=== PATIENT | female | born 1950 | race Caucasian/White ===

== ENCOUNTER 2017-04-30 10:48 | Emergency (ER) | payer BC ==
[2017-04-30 13:20] VITALS: BP 154/98
--- NOTE | 2017-04-30 13:32 | UC ---
Skin Complaint HPI - HPI Summary HPI Summary: multiple insect bites to back and thighs concerned that one maybe a tick bite - History of Current Complaint Chief Complaint: UCSkin Time Seen by Provider: 04/30/17 13:40 Stated Complaint: TICK BITE Hx Obtained From: Patient ?: No Onset/Duration: Sudden Onset, Lasting Days, Still Present Timing: Constant Onset Severity: Mild Current Severity: Mild Location: Diffuse Character: Redness Aggravating: Nothing Alleviating: Nothing Associated Signs & Symptoms: Positive: Negative Related History: Insect Bite/Sting - Allergy/Home Medications Allergies/Adverse Reactions: Allergies Allergy/AdvReac Type Severity Reaction Status Date / Time No Known Allergies Allergy Verified 04/04/16 14:19 Home Medications: Home Medications Aspirin 81 mg PO 04/30/17 [History] Review of Systems Constitutional: Negative Skin: Other - multiple inscect bites Eyes: Negative ENT: Negative Respiratory: Negative Cardiovascular: Negative Gastrointestinal: Negative Genitourinary: Negative Motor: Negative Neurovascular: Negative Musculoskeletal: Negative Neurological: Negative Psychological: Negative All Other Systems Reviewed And Are Negative: Yes PMH/Surg Hx/FS Hx/Imm Hx Previously Healthy: Yes - Surgical History Surgical History: Yes Surgery Procedure, Year, and Place: Laminectomy 1992,. tonsillectomy as a child ,. Laproscopic surgery - Family History Known Family History: Positive: None, Cardiac Disease - father in 80s, Other - brother D esophageal cancer - Social History Occupation: Employed Full-time Lives: With Family Alcohol Use: Rare Substance Use Type: None Smoking Status (MU): Never Smoked Tobacco Have You Smoked in the Last Year: No Physical Exam Triage Information Reviewed: Yes Appearance: Well-Appearing, No Pain Distress, Well-Nourished Vital Signs: Initial Vital Signs Temp 98.3 F 04/30/17 13:16 Pulse 86 04/30/17 13:16 Resp 18 04/30/17 13:16 BP 154/98 04/30/17 13:16 Pulse Ox 99 04/30/17 13:16 Vital Signs Reviewed: Yes Eye Exam: Normal Eyes: Positive: Conjunctiva Clear ENT Exam: Normal ENT: Positive: Normal ENT inspection, Hearing grossly normal. Negative: Nasal congestion, Nasal drainage, Trismus, Muffled/hoarse voice Dental Exam: Normal Neck exam: Normal Neck: Positive: Supple, Nontender Respiratory Exam: Normal Respiratory: Positive: Chest non-tender, Lungs clear, Normal breath sounds, No respiratory distress, No accessory muscle use Cardiovascular Exam: Normal Cardiovascular: Positive: RRR, No Murmur, Pulses Normal, Brisk Capillary Refill Musculoskeletal Exam: Normal Musculoskeletal: Positive: Strength Intact, ROM Intact, No Edema Neurological Exam: Normal Neurological: Positive: Alert, Muscle Tone Normal Psychological Exam: Normal Skin: Positive: Other - multiple insect bites no evidence of a tick or erythema migranes Course/Dx - Course Course Of Treatment: gebtle soap and water wash, topical Hydrocort prn itch, observe for s/s of Lyme and lyme prevention information follow with pcp - Differential Diagnoses - Skin Complaint Differential Diagnoses: Cellulitis, Poison Jessica, Poison Otis, Systemic Illness, Tick Born Illness, Other - inscet bite - Diagnoses Provider Diagnoses: Local reactions to Insect Bite Discharge - Discharge Plan Condition: Stable Disposition: HOME Patient Education Materials: Insect Bite or Sting (ED), Tick Bite (ED), DASH Eating Plan (ED), Hypertension (ED) Referrals: Nestor Salazar MD [Primary Care Provider] - 2 Weeks
== END 2017-04-30 13:59 | disposition home or self-care (01) ==
LOC: UCEAST 10:48
DX: T14.8 Other injury of unspecified body region (principal); Z79.82 Long term (current) use of aspirin; W57.XXXA Bitten or stung by nonvenomous insect and other nonvenomous arthropods, initial encounter; Y92.9 Unspecified place or not applicable
CPT/HCPCS: 99211; G0463

== ENCOUNTER 2017-10-22 10:23 | Emergency (ER) | payer BC ==
[2017-10-22 12:25] VITALS: BP 146/90
--- NOTE | 2017-10-22 12:46 | UC ---
Rectal Pain HPI - HPI Summary HPI Summary: 67yo WF c/o 2 week old tick bite in right inner thigh, now scabbed over, but c/ o CP with cough with mild sputum, also c/o mild urinary frequency and urgency and a tinge of right lower abd pain intermittently x 1 week. - History Of Current Complaint Chief Complaint: UCGeneralIllness Stated Complaint: TICK BITE Time Seen by Provider: 10/22/17 12:11 Hx Last Menstrual Period: post menopause - Allergies/Home Medications Allergies/Adverse Reactions: Allergies Allergy/AdvReac Type Severity Reaction Status Date / Time No Known Allergies Allergy Verified 10/22/17 12:25 PMH/Surg Hx/FS Hx/Imm Hx - Surgical History Surgical History: Yes Surgery Procedure, Year, and Place: Laminectomy 1992,. tonsillectomy as a child ,. Laproscopic surgery. lympoma removed - Family History Known Family History: Positive: None, Cardiac Disease - father in 80s, Other - brother D esophageal cancer - Social History Alcohol Use: Rare Substance Use Type: None Smoking Status (MU): Never Smoked Tobacco Have You Smoked in the Last Year: No - Immunization History Most Recent Influenza Vaccination: delclines Review of Systems Constitutional: Negative Skin: Negative Eyes: Negative ENT: Negative Respiratory: Cough, Other - CP with cough Cardiovascular: Negative Genitourinary: Frequency, Urgency Motor: Negative Neurovascular: Negative Musculoskeletal: Negative Neurological: Negative Psychological: Negative Physical Exam Triage Information Reviewed: Yes Appearance: No Pain Distress Vital Signs: Initial Vital Signs Temp 37.0 C 10/22/17 12:17 Pulse 106 10/22/17 12:17 Resp 20 10/22/17 12:17 BP 146/90 10/22/17 12:17 Pulse Ox 98 10/22/17 12:17 Eye Exam: Normal ENT Exam: Normal ENT: Positive: Normal ENT inspection, Nasal congestion, TMs normal. Negative: Nasal drainage Dental Exam: Normal Neck exam: Normal Neck: Positive: Supple, No Lymphadenopathy Respiratory Exam: Normal Respiratory: Positive: Lungs clear, Other: - coarse BS B/L Cardiovascular Exam: Normal Cardiovascular: Positive: RRR Abdominal Exam: Normal Abdomen Description: Positive: Nontender Musculoskeletal Exam: Normal Neurological Exam: Normal Psychological Exam: Normal Skin Exam: Normal Skin: Positive: significant lesion(s) - Small scabbed over [id number] skin lesion on right mid inner thigh Rectal Pain Course/Dx - Differential Dx/Diagnosis Provider Diagnoses: bronchitis, viral illness, Tick bite Discharge - Discharge Plan Condition: Stable Disposition: HOME Discharge Disposition Comment: F/u wiht PCP for Lyme titer studies next week after acute viral illness Patient Education Materials: Acute Bronchitis (ED), Viral Syndrome (ED) Referrals: Nestor Salazar MD [Primary Care Provider] - Additional Instructions: As tolerated. Drink plenty of hydration for viral chest cold sx and follow up with your primary doctor for Lyme studies next week after your acute viral symptoms resolve
--- NOTE | 2017-10-22 13:23 | UC ---
Skin Complaint HPI - HPI Summary HPI Summary: 67yo Wf c/o right inner thigh tick bite 2 weeks ago, now also p/w c/o cough with mild sputum withe pleuritic CP x 1 week after having contact with sick grandkids, but now somewhat getting better. Also c/o intermittent urinary frequency and urgency once or twice but feels ok now. Kevin f/c. - History of Current Complaint Chief Complaint: UCGeneralIllness Time Seen by Provider: 10/22/17 12:11 Stated Complaint: TICK BITE Hx Obtained From: Patient Hx Last Menstrual Period: post menopause Onset/Duration: Sudden Onset Pain Intensity: 5 Pain Scale Used: 0-10 Numeric Location: Other - right inner thigh Aggravating Factor(s): Nothing Alleviating Factor(s): Nothing Associated Signs & Symptoms: Positive: Weakness, Cough, Chest Pain. Negative: Fever, Chills, Wheezing, Drainage - Allergy/Home Medications Allergies/Adverse Reactions: Allergies Allergy/AdvReac Type Severity Reaction Status Date / Time No Known Allergies Allergy Verified 10/22/17 12:25 Review of Systems Constitutional: Negative Skin: Other - Tick bite Eyes: Negative ENT: Negative Respiratory: Cough, Other - SEE HPI Cardiovascular: Negative Gastrointestinal: Negative Genitourinary: Frequency, Urgency Motor: Negative Neurovascular: Negative Musculoskeletal: Negative Neurological: Negative Psychological: Negative All Other Systems Reviewed And Are Negative: Yes PMH/Surg Hx/FS Hx/Imm Hx - Surgical History Surgical History: Yes Surgery Procedure, Year, and Place: Laminectomy 1992,. tonsillectomy as a child ,. Laproscopic surgery. lympoma removed - Family History Known Family History: Positive: None, Cardiac Disease - father in 80s, Other - brother D esophageal cancer - Social History Alcohol Use: Rare Substance Use Type: None Smoking Status (MU): Never Smoked Tobacco Have You Smoked in the Last Year: No - Immunization History Most Recent Influenza Vaccination: delclines Physical Exam Triage Information Reviewed: Yes Vital Signs: Initial Vital Signs Temp 37.0 C 10/22/17 12:17 Pulse 106 10/22/17 12:17 Resp 20 10/22/17 12:17 BP 146/90 10/22/17 12:17 Pulse Ox 98 10/22/17 12:17 Vital Signs Reviewed: Yes Eye Exam: Normal ENT Exam: Normal Dental Exam: Normal Neck exam: Normal Neck: Positive: 1 Respiratory Exam: Normal Respiratory: Positive: Lungs clear, Stridor, Wheezing, Expiration, Inspiration, Other: - Coarse BS b/l. Negative: Crackles, Rhonchi Cardiovascular Exam: Normal Abdominal Exam: Normal Musculoskeletal Exam: Normal, Other - NO new joint pains Neurological Exam: Normal Psychological Exam: Normal Skin Exam: Normal Skin: Positive: significant lesion(s) - small 3x4mm scabbed over skin lesion on right inner thigh, no target rash elsewhere Course/Dx - Diagnoses Provider Diagnoses: Tick bite, acute bronchitis and viral illness Discharge - Discharge Plan Condition: Stable Disposition: HOME Patient Education Materials: Acute Bronchitis (ED), Viral Syndrome (ED) Referrals: Nestor Salazar MD [Primary Care Provider] - Additional Instructions: As tolerated. Drink plenty of hydration for viral chest cold sx and follow up with your primary doctor for Lyme studies next week after your acute viral symptoms resolve
== END 2017-10-22 13:19 | disposition home or self-care (01) ==
LOC: UCEAST 10:23
DX: S70.361A Insect bite (nonvenomous), right thigh, initial encounter (principal); W57.XXXA Bitten or stung by nonvenomous insect and other nonvenomous arthropods, initial encounter; Y93.9 Activity, unspecified; Y92.9 Unspecified place or not applicable; J20.9 Acute bronchitis, unspecified; B34.9 Viral infection, unspecified; R35.0 Frequency of micturition; R39.15 Urgency of urination
CPT/HCPCS: 81003; 99212; G0463

== ENCOUNTER 2018-05-02 16:07 | Emergency (ER) | payer BC ==
[2018-05-02 16:24] VITALS: BP 142/87
--- NOTE | 2018-05-02 16:28 | UC ---
Skin Complaint HPI - HPI Summary HPI Summary: 68 yo female presents with insect bite to left inner thigh first noticed last night. She had an itch in the area and noticed a small blister with redness around it. She popped the blister and it bled a little. Today is mildly tender and itchy. A scab where the blister was. Unsure if it was a tick and thinks this is a bull's eye rash. Denies fever, chills, headache, joint pain, fatigue. Never saw an attached tick. 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 Onset/Duration: Sudden Onset Skin Exposure Onset/Duration: Days Ago Current Severity: None Pain Intensity: 0 - Allergy/Home Medications Allergies/Adverse Reactions: Allergies Allergy/AdvReac Type Severity Reaction Status Date / Time No Known Allergies Allergy Verified 05/02/18 16:25 Home Medications: Home Medications NK [No Home Medications Reported] 05/02/18 [History Confirmed 05/02/18] Review of Systems Constitutional: Negative Skin: Other - Bug bite left inner thigh Respiratory: Negative Cardiovascular: Negative Neurovascular: Negative Neurological: Negative Psychological: Negative All Other Systems Reviewed And Are Negative: Yes PMH/Surg Hx/FS Hx/Imm Hx - Additional Past Medical History Additional PMH: None Previously Healthy: Yes - Surgical History Surgical History: Yes Surgery Procedure, Year, and Place: Laminectomy 1992,. tonsillectomy as a child ,. Laproscopic surgery. lympoma removed - Family History Known Family History: Positive: None, Cardiac Disease - father in 80s, Other - brother D esophageal cancer - Social History Occupation: Retired Lives: With Family Alcohol Use: Rare Substance Use Type: None Smoking Status (MU): Never Smoked Tobacco Have You Smoked in the Last Year: No - Immunization History Most Recent Influenza Vaccination: tayla Physical Exam - Summary Physical Exam Summary: GENERAL: NAD. WDWN. No pain distress. SKIN: Left inner thigh: 3.0cm oval area of mild erythema with central 2mm scab and 4mm healing blister. No warmth or ecchymosis. No streaking, bleeding, or drainage. NECK: Supple. Nontender. No lymphadenopathy. CHEST: No accessory muscle use. Breathing comfortably and in no distress. CV: Pulses intact NEURO: Alert. CN II-XII grossly intact. PSYCH: Age appropriate behavior. Triage Information Reviewed: Yes Vital Signs: Initial Vital Signs Temp 98.7 F 05/02/18 16:16 Pulse 67 05/02/18 16:16 Resp 16 05/02/18 16:16 BP 142/87 05/02/18 16:16 Pulse Ox 98 05/02/18 16:16 Course/Dx - Course Course Of Treatment: Bug bite left inner thigh. Is not a bull's eye rash. Does not appear consistent with a tick bite. Advised pt to ice the area and apply neosporin. - Diagnoses Provider Diagnoses: Bug bite left inner thigh Discharge - Sign-Out/Discharge Documenting (check all that apply): Patient Departure - Discharge Plan Condition: Stable Disposition: HOME Patient Education Materials: Insect Bite or Sting (ED) Referrals: Nestor Salazar MD [Primary Care Provider] - Additional Instructions: If you develop a fever, shortness of breath, chest pain, new or worsening symptoms - please call your PCP or go to the ED. Your blood pressure was high at todays visit. Please see your primary provider within 4 weeks for recheck and re-evaluation. - Billing Disposition and Condition Condition: STABLE Disposition: Home
== END 2018-05-02 16:40 | disposition home or self-care (01) ==
LOC: UCEAST 16:07
DX: S70.362A Insect bite (nonvenomous), left thigh, initial encounter (principal); W57.XXXA Bitten or stung by nonvenomous insect and other nonvenomous arthropods, initial encounter; Y93.9 Activity, unspecified; Y92.9 Unspecified place or not applicable; Z82.49 Family history of ischemic heart disease and other diseases of the circulatory system; Z80.0 Family history of malignant neoplasm of digestive organs
CPT/HCPCS: 99202; G0463

== ENCOUNTER 2019-05-20 19:53 | Emergency (ER) | payer BC ==
[2019-05-20] MEDS ORDERED: Ondansetron INJ* 2 MG/ML VIAL IV ONE (20:19)
--- NOTE | 2019-05-20 20:19 | UC ---
Abdominal Pain Female HPI - HPI Summary HPI Summary: ONSET AROUND 6 PM OF SHARP EPIGASTRIC PAIN THAT RADIATES THROUGH TO HER BACK. STARTED AFTER EATING A SALAD FOR DINNER. IS FEELING NAUSEATED AND SWEATY. REPORTS A HISTORY OF UNCONTROLLED DIABETES WITH HER LAST A1C ABOUT 3 MONTHS AGO SOMEWHERE AROUND 12 OR 13. DOES NOT CHECK HER BLOOD GLUCOSE AT HOME. 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 Negative: Fever, Urinary Symptoms, Vomiting, Diarrhea Allergies/Adverse Reactions: Allergies Allergy/AdvReac Type Severity Reaction Status Date / Time No Known Allergies Allergy Verified 05/20/19 20:17 Home Medications: Home Medications Calcium Carbonate [Tums] 500 mg PO Q6HR PRN 05/20/19 [History Confirmed 05/20/19 ] PMH/Surg Hx/FS Hx/Imm Hx Endocrine History: Diabetes Cardiovascular History: Hypertension - Surgical History Surgical History: Yes Surgery Procedure, Year, and Place: Laminectomy 1992,. tonsillectomy as a child ,. Laproscopic surgery. lympoma removed - Family History Known Family History: Positive: Cardiac Disease - father in 80s, Other - brother D esophageal cancer - Social History Alcohol Use: Rare Substance Use Type: None Smoking Status (MU): Never Smoked Tobacco Have You Smoked in the Last Year: No - Immunization History Most Recent Influenza Vaccination: delclines Review of Systems All Other Systems Reviewed And Are Negative: Yes Constitutional: Positive: Chills Skin: Positive: Other - DIAPHORETIC Respiratory: Positive: Negative Cardiovascular: Positive: Negative Gastrointestinal: Positive: Abdominal Pain, Vomiting, Nausea Genitourinary: Positive: Negative Physical Exam Triage Information Reviewed: Yes Appearance: Well-Nourished, Pain Distress - MOD/SEVERE Vital Signs: Initial Vital Signs Temp 97.4 F 05/20/19 20:14 Pulse 61 05/20/19 20:14 Resp 18 05/20/19 20:14 BP 160/112 05/20/19 20:14 Pulse Ox 100 05/20/19 20:14 Laboratory Tests 05/20/19 20:35 POC Glucose (mg/dL) 127 H Vital Signs Reviewed: Yes Eyes: Positive: Conjunctiva Clear ENT: Positive: Hearing grossly normal Neck: Positive: Supple Respiratory Exam: Normal Cardiovascular Exam: Normal Abdomen Description: Positive: Soft, Other: - TENDER EPIGASTRIC Musculoskeletal: Positive: No Edema Neurological: Positive: Alert Psychological: Positive: Normal Response To Family, Age Appropriate Behavior Skin: Positive: Other - DIAPHORETIC Diagnostics - EKG Cardiac Rate: NL - 62BPM Cardiac Rhythm: Sinus: Normal Ectopy: None ST Segment: Normal EKG Comparison: No Significant Change Abd Pain Female Course/Dx - Course Course Of Treatment: WHILE IN THE PATIENT BECAME MORE NAUSEATED AND BEGAN VOMITING AND HEAVING. PATIENT HAS A KNOWN HISTORY OF UNCONTROLLED DIABETES. POC GLUCOSE OKAY AT 127. BLOOD PRESSURE IS ELEVATED. PATIENT APPEARS ACUTELY UNWELL AND IS DIAPHORETIC. TO [facility] [place]. - Differential Dx/Diagnosis Provider Diagnosis: Epigastric abdominal pain, Nausea & vomiting - Physician Notification/Consults Discussed Care of Patient With: Dwight Selby - TO [facility] Time Discussed With Above Provider: 20:30 Discharge - Sign-Out/Discharge Documenting (check all that apply): Patient Departure All imaging exams completed and their final reports reviewed: No Studies - Discharge Plan Condition: Guarded Disposition: TRANS HIGHER LVL OF CARE FAC Referrals: Nestor Salazar MD [Primary Care Provider] - - Billing Disposition and Condition Condition: GUARDED Disposition: Trans Higher Lvl of Care Fac
[2019-05-20] MEDS ORDERED: NS 0.9% 1000 ML** 1,000 ML IV ONE (20:20)
[2019-05-20 20:59] VITALS: BP 156/78
== END 2019-05-20 20:56 | disposition short-term general hospital (02) ==
LOC: UCEAST 19:53
DX: R10.13 Epigastric pain (principal); R11.2 Nausea with vomiting, unspecified; E11.9 Type 2 diabetes mellitus without complications; I10 Essential (primary) hypertension
CPT/HCPCS: 93005; 99213; G0463; J2405

== ENCOUNTER → 2019-05-20 21:12 | Emergency (ER) | payer BC ==
--- NOTE | 2019-05-20 23:08 | ED ---
Abdominal Pain/Female - HPI Summary HPI Summary: This patient is a 69 year old F presenting to [facility] accompanied by with a chief complaint of abdominal pain since 1800 today. Pt reports it began a half hour after she ate a salad with a large amount of covington beans, and after a nml BM. The patient rates the current pain 0/10 in severity. Patient reports chills, vomiting. Patient denies diarrhea. 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 Negative: Diarrhea Allergies/Adverse Reactions: Allergies Allergy/AdvReac Type Severity Reaction Status Date / Time No Known Allergies Allergy Verified 05/20/19 20:17 Home Medications: Home Medications NK [No Home Medications Reported] 05/20/19 [History Confirmed 05/20/19] PMH/Surg Hx/FS Hx/Imm Hx Endocrine/Hematology History: Denies: Hx Diabetes, Hx Thyroid Disease Cardiovascular History: Denies: Hx Hypertension, Hx Pacemaker/ICD Respiratory History: Reports: Other Respiratory Problems/Disorders - + TB test, sleep apnea Denies: Hx Asthma, Hx Chronic Obstructive Pulmonary Disease (COPD) GI History: Reports: Other GI Disorders - Barretts Esophagus Denies: Hx Ulcer History: Denies: Hx Dialysis, Hx Renal Disease Sensory History: Reports: Hx Contacts or Glasses - Does not have them with her Denies: Hx Hearing Aid Opthamlomology History: Reports: Hx Contacts or Glasses - Does not have them with her Psychiatric History: Denies: Hx Panic Disorder - Cancer History Cancer Type, Location and Year: basal cell ca x2, 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 tonsillectomy as a child ,. Laproscopic surgery. lympoma removed Infectious Disease History: No Infectious Disease History: Reports: Hx Tuberculosis - has positive test once - cxrays since, History Other Infectious Disease - states father has mrsa Denies: Hx Clostridium Difficile, Hx Hepatitis, Hx Human Immunodeficiency Virus (HIV), Hx of Known/Suspected MRSA, Hx Shingles, Hx Known/Suspected VRE, Hx Known/Suspected VRSA, Traveled Outside the [place] in Last 30 Days - Family History Known Family History: Positive: Cardiac Disease - father in 80s, Other - brother D esophageal cancer - Social History Occupation: Employed Full-time Lives: With Family Alcohol Use: Rare Substance Use Type: Reports: None Smoking Status (MU): Never Smoked Tobacco Have You Smoked in the Last Year: No Review of Systems Positive: Chills Positive: Abdominal Pain, Vomiting. Negative: Diarrhea All Other Systems Reviewed And Are Negative: Yes Physical Exam - Summary Physical Exam Summary: VITAL SIGNS: Reviewed. GENERAL: Patient is a well-developed and nourished female who is lying comfortable in the stretcher. Patient is not in any acute respiratory distress. HEAD AND FACE: No signs of trauma. No ecchymosis, hematomas or skull depressions. No sinus tenderness. EYES: PERRLA, EOMI x 2, No injected conjunctiva, no nystagmus. EARS: Hearing grossly intact. Ear canals and tympanic membranes are within normal limits. MOUTH: Oropharynx within normal limits. NECK: Supple, trachea is midline, no adenopathy, no JVD, no carotid bruit, no c- spine tenderness, neck with full ROM CHEST: Symmetric, no tenderness at palpation LUNGS: Clear to auscultation bilaterally. No wheezing or crackles. CVS: Regular rate and rhythm, S1 and S2 present, no murmurs or gallops appreciated. ABDOMEN: Soft, non-tender. No signs of distention. No rebound no guarding, and no masses palpated. Hyperactive bowel sounds EXTREMITIES: FROM in all major joints, no edema, no cyanosis or clubbing. NEURO: Alert and oriented x 3. No acute neurological deficits. Speech is normal and follows commands. SKIN: Dry and warm Triage Information Reviewed: Yes Vital Signs On Initial Exam: Initial Vitals Temp Pulse Resp BP Pulse Ox 97.8 F 62 16 176/84 98 05/20/19 21:21 05/20/19 21:21 05/20/19 21:21 05/20/19 21:21 05/20/19 21:21 Vital Signs Reviewed: Yes Diagnostics - Vital Signs Vital Signs Temp Pulse Resp BP Pulse Ox 05/20/19 21:21 97.8 F 62 16 176/84 98 - Laboratory Lab Statement: Any lab studies that have been ordered have been reviewed, and results considered in the medical decision making process. Abdominal Pain Fem Course/Dx - Course Course Of Treatment: This patient is a 69 year old F presenting to [facility] accompanied by with a chief complaint of abdominal pain since 1800 today. Pt reports it began a half hour after she ate a salad with a large amount of cov[place] beans, and after a nml BM. The patient rates the current pain 0/ 10 in severity. Patient reports chills, vomiting. Patient denies diarrhea. Physical Exam Findings are nml except for hyperactive bowel sounds. Pt symptoms most likely secondary to the food she ate. Dx Abdominal pain. Pt is asymptomatic at this time. Patient will be discharged. The patient is agreeable with this plan. - Diagnoses Provider Diagnoses: Abdominal pain Discharge - Sign-Out/Discharge Documenting (check all that apply): Patient Departure - Discharge Patient Received Moderate/Deep Sedation with Procedure: No - Discharge Plan Condition: Stable Disposition: HOME Patient Education Materials: Abdominal Pain (ED) Referrals: Nestor Salazar MD [Primary Care Provider] - 3 Days Additional Instructions: PLEASE RETURN TO THE ED IMMEDIATELY FOR WORSENING OR CONCERNING SYMPTOMS. FOLLOW UP WITH PRIMARY CARE PHYSICIAN WITHIN 3 DAYS. - Attestation Statements Document Initiated by Scribe: Yes Documenting Scribe: Henrietta Dominguez Provider For Whom León is Documenting (Include Credential): Dr. Gennaro Clements MD Scribe Attestation: Henrietta Avelar scribed for Dr. Gennaro Clements MD on 05/20/19 at 2314. Status of Scribe Document: Ready
[2019-05-20 23:25] VITALS: BP 132/70
== END | disposition home or self-care (01) ==
LOC: ED 21:12
DX: R10.9 Unspecified abdominal pain (principal); R11.10 Vomiting, unspecified; Z85.828 Personal history of other malignant neoplasm of skin; R68.83 Chills (without fever)
CPT/HCPCS: 99282

== ENCOUNTER 2019-11-04 10:52 | Emergency (ER) | payer BC ==
[2019-11-04 11:09] VITALS: BP 155/97
--- NOTE | 2019-11-04 12:13 | UC ---
Skin Complaint HPI - HPI Summary HPI Summary: 69-year-old female presenting with complaint of "possible spider or bug bites" of her left buttock, left posterior thigh, and left foot x2 days. Patient states lesions started smaller and over the past 2 days many more. She notes itching of the lesions. Notes pain of lesions on L foot. Denies any known drainage or bleeding. Patient states that she has noticed redness increasing around the lesions on her foot and slight swelling of L foot compared to R foot. Denies fever and chills. Denies n/v. Denies anything like this in the past. States she has been putting cortisone cream on lesions to help with itching. 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 tonsillectomy as a child ,. Laproscopic surgery. lympoma removed - Family History Known Family History: Positive: Cardiac Disease - father in 80s, Other - brother D esophageal cancer - Social History Alcohol Use: Rare Substance Use Type: None Smoking Status (MU): Never Smoked Tobacco Have You Smoked in the Last Year: No - Immunization History Most Recent Influenza Vaccination: delclines Review of Systems All Other Systems Reviewed And Are Negative: Yes Constitutional: Positive: Negative. Negative: Fever, Chills Skin: Positive: Rash - red, pruritic L buttock, L thigh, L foot Respiratory: Positive: Negative Cardiovascular: Positive: Negative Gastrointestinal: Positive: Negative. Negative: Vomiting, Nausea Musculoskeletal: Positive: Edema - L foot Neurological: Negative: Paresthesia, Numbness Physical Exam Triage Information Reviewed: Yes Appearance: Well-Appearing, No Pain Distress, Well-Nourished Vital Signs: Initial Vital Signs Temp 99.0 F 11/04/19 11:06 Pulse 88 11/04/19 11:06 Resp 18 11/04/19 11:06 BP 155/97 01/14/20 11:06 Pulse Ox 98 11/04/19 11:06 Vital Signs Reviewed: Yes Eyes: Positive: Conjunctiva Clear ENT: Positive: Hearing grossly normal Neck: Positive: Supple Respiratory Exam: Normal Respiratory: Positive: Lungs clear, Normal breath sounds, No respiratory distress Cardiovascular Exam: Normal Cardiovascular: Positive: RRR, Pulses Normal - strong DP/PT, Brisk Capillary Refill - <2sec Musculoskeletal Exam: Normal Musculoskeletal: Positive: No Edema Neurological Exam: Other - sensation grossly intact Neurological: Positive: Alert Psychological: Positive: Age Appropriate Behavior Skin: Positive: Rashes - multiple vesicular lesions in linear pattern on an erythemtous base noted on L lower buttock and arch of L foot. L foot lesions tender to touch with faint red streaking noted extending up to medial ankle. Large area of vesicular lesions on erythematous base also noted on posterior thigh ~10cm long and 7cm wide. no active draining on exam. no red streaking noted from other sites. lesions do not cross midline. Course/Dx - Course Course Of Treatment: Discussed and educated on shingles with possible secondary bacterial infection of lesions on left foot. I treated patient with Keflex and Valtrex. Patient stated she did not know if she wanted to take the Valtrex and asked if I would send a prescription so that Valtrex as if she decides she would like to take it. She agreed to take Keflex for bacterial infection. I educated on signs and symptoms of worsening bacterial infection and instructed to go to emergency room if any occur. Instructed to follow up with PCP if symptoms do not begin to resolve within 1-2 weeks. Patient voiced understanding and agreed with treatment plan. - Differential Diagnoses - Skin Complaint Differential Diagnoses: Cellulitis - Diagnoses Provider Diagnosis: Shingles outbreak, Cellulitis of left foot Discharge ED - Sign-Out/Discharge Documenting (check all that apply): Patient Departure All imaging exams completed and their final reports reviewed: No Studies - Discharge Plan Condition: Stable Disposition: HOME Prescriptions: Cephalexin CAP* [Keflex CAP*] 500 mg PO TID #21 cap ValACYclovir (*) [Valtrex 1 GM(*)] 1 gm PO TID 10 Days #30 tab Patient Education Materials: Valacyclovir (By mouth), Shingles (ED), Cellulitis (ED), Shingles Vaccine (ED) Referrals: Rocky West MD [Medical Doctor] - If Needed Nestor Salazar MD [Primary Care Provider] - If Needed Additional Instructions: As discussed, your skin lesions appear to be shingles. Take the antiviral Valtrex as prescribed. You also appear to have a secondary bacterial infection. Take Keflex as prescribed for the treatment of your skin infection. Keep the areas clean and dry. You may apply warm compresses to the areas for 10- 20 minutes daily. Follow up with your primary care physician or the senior instrumentation engineer referral as listed below if your symptoms persist or worsen. Go to the emergency room if you experience fever, increasing redness and warmth to the areas, or nausea and vomiting. - Billing Disposition and Condition Condition: STABLE Disposition: Home - Attestation Statements Provider Attestation: This patient was not seen by me. I was available for consult. Chart reviewed. JUSTYNA
== END 2019-11-04 13:04 | disposition home or self-care (01) ==
LOC: UCEAST 10:52
DX: L03.116 Cellulitis of left lower limb (principal); B02.9 Zoster without complications
CPT/HCPCS: 99212; G0463

== ENCOUNTER 2020-01-04 16:55 | Emergency (ER) | payer BC ==
[2020-01-04 19:31] VITALS: BP 136/90
--- NOTE | 2020-01-04 19:35 | UC ---
Respiratory Complaint HPI - HPI Summary HPI Summary: 69 y/o female presents to the urgent care persistent cough, productive with fatigue.. denies nausea and diarrhea. taking guaifenisen and expectorant. pt states she aspirated a drink while at work last week. Missed work on and th. denies sore throat. - History of Current Complaint Chief Complaint: UCGeneralIllness Stated Complaint: COUGH/FEVER Time Seen by Provider: 01/04/20 19:33 Hx Obtained From: Patient Hx Last Menstrual Period: post Onset/Duration: Gradual Onset, Lasting Weeks - 1 week, Still Present Timing: Intermittent Episodes Severity Initially: Mild Severity Currently: Moderate Pain Intensity: 0 Pain Scale Used: 0-10 Numeric Character: Cough: Productive, Sputum Description: - yellowish Aggravating Factors: Recumbent Position Alleviating Factors: OTC Meds Associated Signs And Symptoms: Positive: URI. Negative: Dyspnea, Fever, Chills , Wheezing - Risk Factors Pulmonary Embolism Risk Factors: Negative Cardiac Risk Factors: Negative Pseudomonas Risk Factors: Negative Tuberculosis Risk Factors: Negative - Allergies/Home Medications Allergies/Adverse Reactions: Allergies Allergy/AdvReac Type Severity Reaction Status Date / Time No Known Allergies Allergy Verified 01/04/20 19:21 Home Medications: Home Medications Azithromycin TAB* [Zithromax TAB (Z-YASMEEN) 250 mg #6 tabs] 250 mg PO DAILY #4 tab 01/04/20 [Rx] Guaifen/Dextromethorphan/PE [Mucinex Fast-Max Severe C 5-10-200 mg] 1 tab PO DAILY 01/04/20 [History Confirmed 01/04/20] PMH/Surg Hx/FS Hx/Imm Hx Previously Healthy: Yes Endocrine History: Diabetes - diet control - Surgical History Surgical History: Yes Surgery Procedure, Year, and Place: Laminectomy 1992,. tonsillectomy as a child ,. Laproscopic surgery. lympoma removed - Family History Known Family History: Positive: Cardiac Disease - father in 80s, Diabetes, Other - brother D esophageal cancer - Social History Occupation: Employed Full-time Lives: With Family Alcohol Use: Rare Substance Use Type: None Smoking Status (MU): Never Smoked Tobacco Have You Smoked in the Last Year: No - Immunization History Most Recent Influenza Vaccination: delclines Review of Systems All Other Systems Reviewed And Are Negative: Yes Constitutional: Positive: Negative Skin: Positive: Negative Eyes: Positive: Negative ENT: Positive: Sinus Congestion, Other - PND Respiratory: Positive: Cough - productive Cardiovascular: Positive: Negative Gastrointestinal: Positive: Negative Genitourinary: Positive: Negative Motor: Positive: Negative Neurovascular: Positive: Negative Musculoskeletal: Positive: Negative Neurological/Mental Status: Positive: Negative Psychological: Positive: Negative Is Patient Immunocompromised?: No Physical Exam - Summary Physical Exam Summary: Vital Signs Reviewed: Yes General: well developed, well nourished female sitting in the examining table w/ o any apparent distress Eyes: Positive: Conjunctiva Clear - PERRLA, EOMI, fundi grossly normal ENT: Positive: Normal ENT inspection, Hearing grossly normal, Pharynx normal, Nasal congestion - edematous and erythematous nasal mucosa, Nasal drainage - yellowish drainage, TMs normal. Negative: Tonsillar swelling, Tonsillar exudate Neck: Positive: Supple, Nontender, No Lymphadenopathy Respiratory: no orthopnea or dyspnea. Able to speak in full sentences, no retractions or accessory muscle use, no tripod position, stridor, or head bobbing. Positive breath sounds bilaterally. diffuse scattered rhonchi on b/ L lungs, no wheezing, no crackles or rales. Cardiovascular: Positive: RRR, No Murmur, Pulses Normal, Brisk Capillary Refill Abdomen Description: Positive: Nontender, No Organomegaly, Soft. Negative: CVA Tenderness (R), CVA Tenderness (L) Bowel Sounds: Positive: Present Musculoskeletal Exam: Normal Musculoskeletal: Positive: Strength Intact, ROM Intact, No Edema Neurological Exam: Normal Psychological Exam: Normal Skin Exam: Normal Triage Information Reviewed: Yes Vital Signs: Initial Vital Signs Temp 98.2 F 01/04/20 19:16 Pulse 86 01/04/20 19:16 Resp 16 01/04/20 19:16 BP 136/90 01/04/20 19:16 Pulse Ox 98 01/04/20 19:16 Respiratory Course/Dx - Course Course Of Treatment: Pt is hemodynamically stable, A&Ox3, VS: WNL. Pt with Acute bronchitis on examination. Rapid strep: negative, Rapid Influenza A&B: negative. Chest X-ray ordered to r/o pneumonia. Impression: No active Cardiopulmonary disease observed as per DR Rdz. Dr Andrade recommends Z-yasmeen PO for her bronchitis. Pt Rx Z -yasmeen PO and advised to continue taking Robitussin PO to alelviate her cough. Pt advised to increase fluid intake and eat well. if not improvement or worsening of symptoms to return to the urgent care or f/u with PCP in 3 days for further management.Pt's BP mildly elevated today and advised to decrease salt in diet, monitor BP and f/u with PCP if BP continues to be elevated for further management. PT understood and agreed with plan of care. - Differential Dx/Diagnosis Differential Diagnosis/HQI/PQRI: Asthma, Bronchitis, Exacerbation Of COPD, Influenza, Lower Resp Infection, Sinusitis, Other - strep, COVID Provider Diagnosis: Acute bronchitis, Cough, Elevated BP without diagnosis of hypertension Discharge ED - Sign-Out/Discharge Documenting (check all that apply): Patient Departure - D/C home All imaging exams completed and their final reports reviewed: No - Discharge Plan Condition: Stable Disposition: HOME Prescriptions: Azithromycin TAB* [Zithromax TAB (Z-YASMEEN) 250 mg #6 tabs] 250 mg PO DAILY #4 tab Patient Education Materials: Acute Bronchitis (ED) Forms: *Work Release Referrals: Nestor Salazar MD [Primary Care Provider] - 3 Days Additional Instructions: 1-Please take full course of antibiotic to avoid resistance. First dose given tonight. 2- Rapid strep: negative, Rapid Influenza A&B: negative. 3-Continue taking Robitussin PO tabs as directed to alleviate cough. Increase fluid intake, rest and eat well. Use a humidifier to alleviate symptoms 4- If symptoms do not improve or worsen or your develop SOB with fever and severe wheezing please go immediately to the ER further evaluation and treatment. 5- If not improvement of symptoms F/u with your PCP in 3 days for further management 6-Your BP is elevated today advised to decrease salt in diet, monitor BP and f/ u with PCP for further management. - Billing Disposition and Condition Condition: STABLE Disposition: Home
[2020-01-04 19:54] LABS: Influenza A Molecular Negative (Negative); Influenza B Molecular Negative (Negative)
[2020-01-04] MEDS ORDERED: Azithromycin TAB* 250 MG PO ONE (20:14)
--- NOTE | 2020-01-05 09:57 | UC ---
- Progress Note Progress Note: Final radiologist reading of chest x-ray from January 04, 2020 comes back as COPD with no acute disease process. Provider interpretation same date was no acute disease process therefore there is no discrepancy. Course/Dx - Diagnoses Provider Diagnoses: Acute bronchitis, Cough, Elevated BP without diagnosis of hypertension Discharge ED - Sign-Out/Discharge Documenting (check all that apply): Patient Departure All imaging exams completed and their final reports reviewed: Yes - Discharge Plan Condition: Stable Disposition: HOME Prescriptions: Azithromycin TAB* [Zithromax TAB (Z-YASMEEN) 250 mg #6 tabs] 250 mg PO DAILY #4 tab Patient Education Materials: Acute Bronchitis (ED) Forms: *Work Release Referrals: Nestor Salazar MD [Primary Care Provider] - 3 Days Additional Instructions: 1-Please take full course of antibiotic to avoid resistance. First dose given tonight. 2- Rapid strep: negative, Rapid Influenza A&B: negative. 3-Continue taking Robitussin PO tabs as directed to alleviate cough. Increase fluid intake, rest and eat well. Use a humidifier to alleviate symptoms 4- If symptoms do not improve or worsen or your develop SOB with fever and severe wheezing please go immediately to the ER further evaluation and treatment. 5- If not improvement of symptoms F/u with your PCP in 3 days for further management 6-Your BP is elevated today advised to decrease salt in diet, monitor BP and f/ u with PCP for further management. - Billing Disposition and Condition Condition: STABLE Disposition: Home
== END 2020-01-04 21:00 | disposition home or self-care (01) ==
LOC: UCEAST 16:55
DX: R03.0 Elevated blood-pressure reading, without diagnosis of hypertension (principal); R05 Cough; J20.9 Acute bronchitis, unspecified; E11.9 Type 2 diabetes mellitus without complications
CPT/HCPCS: 71046; 87651; 99212; A9270-GY; G0463

== ENCOUNTER 2020-05-19 11:30 | Observation (INO) ==
[2020-05-19] MEDS ORDERED: Dextran 70/Hypromellose Tears Eye Drops 15 ml BTL (for Artificials Tears) BOTH EYES PRN (12:03)
[2020-05-19 12:12] LABS: ABS Eosinophils 0.1 10^3/ul (0-0.6); ABS Lymphocytes 1.1 10^3/ul (1.0-4.8); ABS Monocytes 0.5 10^3/ul (0-0.8); ABS Neutrophils 5.3 10^3/ul (1.5-7.7); Eosinophil % 2.1 %; Hematocrit 41 % (35-47); Mean Corpuscular HGB Conc 34 g/dL (31-36); Mean Corpuscular Hemoglobin 29 pg (27-31); Mean Corpuscular Volume 84 fL (80-97); Mean Platelet Volume 8.5 fL (7.4-10.4); Nucleated Red Blood Cells % 0.1; Platelet Count 210 10^3/uL (150-450); Red Blood Count 4.89 10^6 /uL (3.70-4.87); Red Cell Distribution Width 13 % (10-15); White Blood Count 7.2 10^3/uL (3.5-10.8)
[2020-05-19 12:27] LABS: Albumin 3.9 g/dL (3.2-5.2); Albumin/Globulin Ratio 1.1 (1-3); BUN/Creatinine Ratio 26.2 (8-20); Calcium 8.9 mg/dL (8.6-10.3); EGFR African American 117.7 (>60); EGFR Non-African American 97.2 (>60); Globulin 3.5 g/dL (2-4); Potassium 3.7 mmol/L (3.5-5.0); Total Bilirubin 0.5 mg/dL (0.2-1.0); Total Protein 7.4 g/dL (6.4-8.9)
[2020-05-19] MEDS ORDERED: Iodixanol (CONTRAST) 320 MG/ML 100 ML SDV IV ONE (13:29)
[2020-05-19 14:44] LABS: TSH Ultra Thyroid Stim Horm 1.29 mcIU/mL (0.34-5.60)
[2020-05-19] MEDS: Amoxicillin/Clavul 875/125 TAB (Augmentin 875 tab) PO SCH (16:47)
[2020-05-19] MEDS: Enoxaparin 40 MG/0.4 ML SYR SUBCUT SCH ×3 (16:48→19:34)
[2020-05-20] MEDS: Amoxicillin/Clavul 875/125 TAB (Augmentin 875 tab) PO SCH ×2 (05:21→16:31)
[2020-05-20 05:32] LABS: ABS Eosinophils 0.2 10^3/ul (0-0.6); ABS Lymphocytes 1.5 10^3/ul (1.0-4.8); ABS Monocytes 0.6 10^3/ul (0-0.8); ABS Neutrophils 2.6 10^3/ul (1.5-7.7); Hematocrit 38 % (35-47); Hemoglobin 13.1 g/dL (12.0-16.0); Lymphocyte % 31.2 %; Mean Corpuscular HGB Conc 34 g/dL (31-36); Mean Corpuscular Hemoglobin 29 pg (27-31); Mean Corpuscular Volume 83 fL (80-97); Mean Platelet Volume 8.5 fL (7.4-10.4); Nucleated Red Blood Cells % 0.1; Platelet Count 185 10^3/uL (150-450); Red Cell Distribution Width 13 % (10-15); White Blood Count 4.9 10^3/uL (3.5-10.8)
[2020-05-20 05:49] LABS: BUN/Creatinine Ratio 19.2 (8-20); Calcium 8.3 mg/dL (8.6-10.3); EGFR African American 141.5 (>60); EGFR Non-African American 116.9 (>60); HDL Cholesterol 27.4 mg/dL; Potassium 3.8 mmol/L (3.5-5.0)
[2020-05-20] MEDS ORDERED: Dextrose 50% Syringe 50 ml 25 GM/50 ML SYRINGE IV PUSH PRN (07:57)
[2020-05-20 10:35] LABS: Magnesium 1.9 mg/dL (1.9-2.7)
[2020-05-20] MEDS: Enoxaparin 40 MG/0.4 ML SYR SUBCUT SCH (13:54)
[2020-05-20] MEDS ORDERED: Gadoteridol (CONTRAST) 279.3 MG/ML 10 ML IV ONE (15:18)
[2020-05-21] MEDS: Amoxicillin/Clavul 875/125 TAB (Augmentin 875 tab) PO SCH (04:55)
[2020-05-21 09:07] VITALS: BP 120/75
== END 2020-05-21 09:40 | disposition home or self-care (01) ==
LOC: MEDTELE 11:30 → ED 11:30 → MEDTELE 15:06
PROVIDERS: ADMIT Internal Medicine; ATTEND Internal Medicine

== ENCOUNTER 2023-01-01 10:00 | Inpatient (IN) ==
[2023-01-01 14:30] LABS: ABS Basophils 0.1 10^3/ul (0-0.2); ABS Eosinophils 0.1 10^3/ul (0-0.6); ABS Lymphocytes 1.6 10^3/ul (1.0-4.8); ABS Monocytes 0.8 10^3/ul (0-0.8); ABS Neutrophils 5.5 10^3/ul (1.5-7.7); Eosinophil % 1.4 %; Hematocrit 38 % (35-47); Hemoglobin 12.6 g/dL (12.0-16.0); Mean Corpuscular HGB Conc 33 g/dL (31-36); Mean Corpuscular Hemoglobin 27 pg (27-31); Mean Corpuscular Volume 82 fL (80-97); Mean Platelet Volume 8.1 fL (7.4-10.4); Platelet Count 333 10^3/uL (150-450); Red Blood Count 4.62 10^6 /uL (3.70-4.87); Red Cell Distribution Width 15 % (10-15)
[2023-01-01 16:20] LABS: Albumin 3.7 g/dL (3.2-5.2); Albumin/Globulin Ratio 1.1 (1-3); C Reactive Protein 123.01 mg/L (<8.01); Calcium 9.3 mg/dL (8.6-10.3); Creatinine, Serum 0.51 mg/dL (0.51-0.95); Globulin 3.5 g/dL (2-4); Potassium 3.4 mmol/L (3.5-5.0); Total Bilirubin 0.7 mg/dL (0.2-1.0); Total Protein 7.2 g/dL (6.4-8.9); eGFR CKD-EPI 99.7 (>60)
[2023-01-01 19:33] LABS: Urine Appearance Turbid; Urine Bilirubin Negative (Negative); Urine Blood 3+ (Negative); Urine Color Yellow; Urine Glucose Negative (Negative); Urine Ketones Negative (Negative); Urine Nitrite Negative (Negative); Urine Protein 2+(100 mg/dL) (Negative); Urine Specific Gravity 1.009 (1.002-1.030); Urine Urobilinogen Negative (Negative)
[2023-01-01 19:37] LABS: Urine Amorphous Crystals Present (Absent); Urine Bacteria 1+ (Absent); Urine Red Blood Cell 3+(>10/hpf) (Absent); Urine Squamous Epithelial Cell Present (Absent); Urine White Blood Cell 3+(>20/hpf) (Absent); Urine Yeast Present (Absent)
[2023-01-01] MEDS ORDERED: Iodixanol (CONTRAST) 320 MG/ML 100 ML SDV IV ONE (20:11)
[2023-01-01] MEDS ORDERED: ceFOXitin 2 GM IVPREMIX 2 GM/50 ML BAG IVPB ONE (21:20)
[2023-01-01] MEDS ORDERED: NS 0.9% 1000 ml BAG 1,000 ML IV ONE (21:21)
[2023-01-01] MEDS ORDERED: metroNIDAZOLE IV 500 MG/100ML 500 MG/100 ML BAG IVPB ONE (21:21)
[2023-01-01] MEDS ORDERED: Ondansetron 4 mg VIAL 2 MG/ML 2 ml VIAL IV ONE (21:32)
[2023-01-02] MEDS ORDERED: Potassium Chlor 20 meq TAB.ER PO ONE (00:10)
[2023-01-02] MEDS ORDERED: Cefepime 2 GM in Dextrose 2 GM/50 ML BAG IV SCH ×2 (01:00→14:00)
[2023-01-02] MEDS ORDERED: metroNIDAZOLE IV 500 MG/100ML 500 MG/100 ML BAG IVPB ONE (06:00)
[2023-01-02] MEDS ORDERED: Cefepime 2 GM in NS 0.9% 50 ML 50 ML IVPB SCH (06:00)
[2023-01-02] MEDS: Lactated Ringers 1000 ml BAG 1,000 ML IV SCH ×2 (06:06→19:54)
[2023-01-02] MEDS: metroNIDAZOLE IV 500 MG/100ML 500 MG/100 ML BAG IVPB SCH ×2 (06:07→16:41)
[2023-01-02 06:23] LABS: ABS Basophils 0.1 10^3/ul (0-0.2); ABS Eosinophils 0.2 10^3/ul (0-0.6); ABS Lymphocytes 1.6 10^3/ul (1.0-4.8); ABS Monocytes 0.7 10^3/ul (0-0.8); ABS Neutrophils 4.2 10^3/ul (1.5-7.7); Eosinophil % 2.3 %; Hematocrit 32 % (35-47); Hemoglobin 10.9 g/dL (12.0-16.0); Lymphocyte % 23.6 %; Mean Corpuscular HGB Conc 34 g/dL (31-36); Mean Corpuscular Hemoglobin 27 pg (27-31); Mean Corpuscular Volume 80 fL (80-97); Mean Platelet Volume 7.9 fL (7.4-10.4); Nucleated Red Blood Cells % 0.1; Platelet Count 265 10^3/uL (150-450); Red Blood Count 4.01 10^6 /uL (3.70-4.87); Red Cell Distribution Width 15 % (10-15); White Blood Count 6.7 10^3/uL (3.5-10.8)
[2023-01-02 07:02] LABS: Calcium 8.5 mg/dL (8.6-10.3); Creatinine, Serum 0.5 mg/dL (0.51-0.95); eGFR CKD-EPI 100.2 (>60)
[2023-01-02] MEDS: Cefepime 2 GM in Dextrose 2 GM/50 ML BAG IV SCH ×2 (15:29→21:30)
[2023-01-02] MEDS ORDERED: oxyCODONE/Acetamin 5/325 mg TAB PO PRN (15:54)
[2023-01-02] MEDS ORDERED: Ondansetron 4 mg VIAL 2 MG/ML 2 ml VIAL IV PRN (15:55)
[2023-01-03] MEDS: metroNIDAZOLE IV 500 MG/100ML 500 MG/100 ML BAG IVPB SCH (00:03)
[2023-01-03 06:32] LABS: ABS Eosinophils 0.2 10^3/ul (0-0.6); ABS Lymphocytes 1.3 10^3/ul (1.0-4.8); ABS Monocytes 0.8 10^3/ul (0-0.8); ABS Neutrophils 5.6 10^3/ul (1.5-7.7); Hematocrit 33 % (35-47); Hemoglobin 10.9 g/dL (12.0-16.0); Lymphocyte % 16.9 %; Mean Corpuscular HGB Conc 33 g/dL (31-36); Mean Corpuscular Hemoglobin 26 pg (27-31); Mean Corpuscular Volume 80 fL (80-97); Mean Platelet Volume 8.1 fL (7.4-10.4); Nucleated Red Blood Cells % 0.1; Platelet Count 286 10^3/uL (150-450); Red Blood Count 4.13 10^6 /uL (3.70-4.87); Red Cell Distribution Width 16 % (10-15); White Blood Count 7.9 10^3/uL (3.5-10.8)
[2023-01-03 06:53] LABS: Calcium 8.7 mg/dL (8.6-10.3); Creatinine, Serum 0.44 mg/dL (0.51-0.95); Magnesium 1.9 mg/dL (1.9-2.7); Potassium 3.9 mmol/L (3.5-5.0); eGFR CKD-EPI 103.3 (>60)
[2023-01-03] MEDS ORDERED: Amoxicillin/Clavul 875/125 TAB (Augmentin 875 tab) PO SCH (09:00)
[2023-01-03 09:21] VITALS: BP 115/69
== END 2023-01-03 12:00 | disposition home or self-care (01) | DRG 244 ==
LOC: ED 10:00 → SUATTDRO 22:41 → EDHOLD 22:41 → SSU 01-02 10:44
PROVIDERS: ADMIT Student in an Organized Health Care Education/Training Program; ATTEND Internal Medicine

== ENCOUNTER 2023-01-06 16:33 | Observation (INO) ==
[2023-01-06] MEDS ORDERED: NS 0.9% 1000 ml BAG 1,000 ML IV ONE (16:39)
[2023-01-06 17:35] LABS: Urine Appearance Cloudy; Urine Bilirubin Negative (Negative); Urine Blood 2+ (Negative); Urine Color Yellow; Urine Glucose Negative (Negative); Urine Ketones 2+ (Negative); Urine Nitrite Negative (Negative); Urine Protein 1+(30 mg/dL) (Negative); Urine Specific Gravity 1.012 (1.002-1.030); Urine Urobilinogen Negative (Negative)
[2023-01-06 17:44] LABS: ABS Lymphocytes 0.6 10^3/ul (1.0-4.8); ABS Monocytes 0.6 10^3/ul (0-0.8); ABS Neutrophils 6.4 10^3/ul (1.5-7.7); Hematocrit 36 % (35-47); Hemoglobin 11.8 g/dL (12.0-16.0); Lymphocyte % 8.2 %; Mean Corpuscular HGB Conc 33 g/dL (31-36); Mean Corpuscular Hemoglobin 27 pg (27-31); Mean Corpuscular Volume 80 fL (80-97); Mean Platelet Volume 7.8 fL (7.4-10.4); Nucleated Red Blood Cells % 0.1; Platelet Count 226 10^3/uL (150-450); Red Blood Count 4.44 10^6 /uL (3.70-4.87); Red Cell Distribution Width 15 % (10-15); White Blood Count 7.7 10^3/uL (3.5-10.8)
[2023-01-06] MEDS ORDERED: Piperacillin/Tazobac ADVAN 3.375 GM in NS 0.9% 100 ml BAG 100 ML IV ONE (17:45)
[2023-01-06 17:46] LABS: INR 1.38 (0.88-1.18)
[2023-01-06 17:50] LABS: Urine Bacteria Absent (Absent); Urine Red Blood Cell 2+(6-10/hpf) (Absent); Urine Squamous Epithelial Cell Present (Absent); Urine White Blood Cell 3+(>20/hpf) (Absent)
[2023-01-06 18:14] LABS: Albumin 3.3 g/dL (3.2-5.2); Albumin/Globulin Ratio 1.1 (1-3); C Reactive Protein 18.16 mg/L (<8.01); Calcium 7.9 mg/dL (8.6-10.3); Creatinine, Serum 0.48 mg/dL (0.51-0.95); Globulin 3.1 g/dL (2-4); Magnesium 1.6 mg/dL (1.9-2.7); Phosphorus 2.1 mg/dL (2.5-5.0); Potassium 3.7 mmol/L (3.5-5.0); Total Bilirubin 0.4 mg/dL (0.2-1.0); Total Protein 6.4 g/dL (6.4-8.9); eGFR CKD-EPI 101.2 (>60)
[2023-01-06] MEDS ORDERED: Iodixanol (CONTRAST) 320 MG/ML 100 ML SDV IV ONE (18:31)
[2023-01-06] MEDS ORDERED: Ondansetron 4 mg VIAL 2 MG/ML 2 ml VIAL IV PRN (18:55)
[2023-01-06] MEDS ORDERED: Magnesium Sulfate 2 gm BAG 2 GM/50 ML BAG IVPB ONE (18:57)
[2023-01-06] MEDS ORDERED: Potassium Phosphate IV 15 MMOL in NS 0.9% 250 ml 250 ML IVPB ONE (18:58)
[2023-01-06 19:04] LABS: High Sensitivity Troponin 1 Hr 4 pg/mL (<15)
[2023-01-06] MEDS: Lactated Ringers 1000 ml BAG 1,000 ML IV ONE (19:29)
[2023-01-06] MEDS ORDERED: Zosyn per Pharmacy NOTE FOLLOW UP SCH (20:00)
[2023-01-06] MEDS ORDERED: Remdesivir 100 mg Vial 200 MG in NS 0.9% 250 ml 210 ML IV ONE (20:34)
[2023-01-06] MEDS ORDERED: Phytonadione Oral Solution 5 MG/25 ML UDC PO ONE (20:39)
[2023-01-06] MEDS ORDERED: Heparin 5000 UNITS/ML 1 mL VIAL SUBCUT SCH (22:00)
[2023-01-06] MEDS ORDERED: cefTRIAXone 1 gm/50 mL D5W 1 GM/50 ML BAG IV SCH (23:00)
[2023-01-06] MEDS: metroNIDAZOLE IV 500 MG/100ML 500 MG/100 ML BAG IVPB SCH (23:45)
[2023-01-07] MEDS: Lactated Ringers 1000 ml BAG 1,000 ML IV ONE (04:51)
[2023-01-07] MEDS: metroNIDAZOLE IV 500 MG/100ML 500 MG/100 ML BAG IVPB SCH (04:51)
[2023-01-07 06:24] LABS: ABS Lymphocytes 0.5 10^3/ul (1.0-4.8); ABS Monocytes 0.2 10^3/ul (0-0.8); ABS Neutrophils 3.9 10^3/ul (1.5-7.7); Hematocrit 34 % (35-47); Hemoglobin 10.9 g/dL (12.0-16.0); Lymphocyte % 10.3 %; Mean Corpuscular HGB Conc 32 g/dL (31-36); Mean Corpuscular Hemoglobin 26 pg (27-31); Mean Corpuscular Volume 82 fL (80-97); Mean Platelet Volume 7.6 fL (7.4-10.4); Platelet Count 201 10^3/uL (150-450); Red Blood Count 4.14 10^6 /uL (3.70-4.87); Red Cell Distribution Width 16 % (10-15); White Blood Count 4.6 10^3/uL (3.5-10.8)
[2023-01-07 06:30] LABS: INR 1.28 (0.88-1.18)
[2023-01-07 06:59] LABS: Albumin 2.9 g/dL (3.2-5.2); Albumin/Globulin Ratio 1.1 (1-3); C Reactive Protein 67.37 mg/L (<8.01); Calcium 7.8 mg/dL (8.6-10.3); Creatinine, Serum 0.45 mg/dL (0.51-0.95); Globulin 2.7 g/dL (2-4); Magnesium 2.3 mg/dL (1.9-2.7); Phosphorus 4.1 mg/dL (2.5-5.0); Potassium 3.8 mmol/L (3.5-5.0); Total Bilirubin 0.2 mg/dL (0.2-1.0); Total Protein 5.6 g/dL (6.4-8.9); eGFR CKD-EPI 102.8 (>60)
[2023-01-07] MEDS: Amoxicillin/Clavul 875/125 TAB (Augmentin 875 tab) PO SCH ×2 (11:51→20:59)
[2023-01-07] MEDS ORDERED: Dextrose 50% Syringe 50 ml 25 GM/50 ML SYRINGE IV PUSH PRN (17:25)
[2023-01-07] MEDS ORDERED: Remdesivir 100 mg Vial 100 MG in NS 0.9% 250 ml 230 ML IV SCH (21:00)
[2023-01-08] MEDS: Amoxicillin/Clavul 875/125 TAB (Augmentin 875 tab) PO SCH ×2 (02:30→11:24)
[2023-01-08 06:23] LABS: ABS Monocytes 0.6 10^3/ul (0-0.8); Eosinophil % 0.1 %; Hematocrit 32 % (35-47); Hemoglobin 10.4 g/dL (12.0-16.0); Lymphocyte % 17.8 %; Mean Corpuscular HGB Conc 33 g/dL (31-36); Mean Corpuscular Hemoglobin 26 pg (27-31); Mean Corpuscular Volume 80 fL (80-97); Mean Platelet Volume 7.9 fL (7.4-10.4); Nucleated Red Blood Cells % 0.1; Platelet Count 193 10^3/uL (150-450); Red Blood Count 3.98 10^6 /uL (3.70-4.87); Red Cell Distribution Width 16 % (10-15); White Blood Count 5.7 10^3/uL (3.5-10.8)
[2023-01-08 06:26] LABS: INR 1.4 (0.88-1.18)
[2023-01-08 07:10] LABS: Calcium 7.9 mg/dL (8.6-10.3); Creatinine, Serum 0.31 mg/dL (0.51-0.95); Potassium 3.9 mmol/L (3.5-5.0); eGFR CKD-EPI 112.4 (>60)
[2023-01-08 10:01] VITALS: BP 102/59
== END 2023-01-08 12:45 | disposition home or self-care (01) ==
LOC: ED 16:33 → EDHOLD 16:33 → SUATTDRO 18:25 → MED 01-07 15:45
PROVIDERS: ADMIT Internal Medicine; ATTEND Family Medicine